=== PATIENT | male | born 1950 | race Two or more races ===

== ENCOUNTER → 2019-03-24 | Outpatient (CLI) | payer OTHER, MEDICAID ==
[~2019-03-24] VITALS: Ht 172.7 cm; Wt 79.4 kg
[~2019-03-24] MED LIST: ADENOSINE 67 MG in GIVE UN-DILUTED 0 ML IV STA
== END | disposition home or self-care (01) ==
LOC: XY 08:12
PROVIDERS: ATTEND Internal Medicine
DX: R94.31 Abnormal electrocardiogram [ECG] [EKG] (principal); I10 Essential (primary) hypertension
CPT/HCPCS: 78452; 93017; A9500; J0153